=== PATIENT | female | born 1965 | race Hispanic/Latino ===

== ENCOUNTER 2017-09-29 23:25 | Emergency (ER) | payer OTHER ==
[~2017-09-29] VITALS: Ht 160 cm; Wt 89.8 kg
[2017-09-30] MEDS ORDERED: ROBAXIN-750750 MG PO (02:00)
== END 2017-09-30 02:19 | disposition home or self-care (01) ==
LOC: FSED 23:25
DX: M54.2 Cervicalgia (principal); S16.1XXA Strain of muscle, fascia and tendon at neck level, initial encounter; R51 Headache
CPT/HCPCS: 99282